=== PATIENT | female | born 1970 | race Two or more races ===

== ENCOUNTER 2022-06-22 17:45 | Emergency (ER) | payer OTHER ==
[~2022-06-22] VITALS: Ht 157.5 cm; Wt 90.7 kg
[2022-06-22 18:18] VITALS: BP 158/97
--- NOTE | 2022-06-22 19:54 | NUR ---
R SHOULDER AND R LOWER BACK PAIN STARTED TODAY, WAS LIFTING HEADY STUFF 2 DAYS AGO. NOT ABLE TO LIFT UP R ARM ABOVE HEAD D/T PAIN PT A/OX4. TOLERATING R/A WELL WITH NO SOB. AMB WITH STEADY GAIT.
[2022-06-22] MEDS ORDERED: IBUP-1955 PO (20:43)
== END 2022-06-22 20:49 | disposition home or self-care (01) ==
LOC: ER 17:55
DX: S29.012A Strain of muscle and tendon of back wall of thorax, initial encounter (principal); S49.91XA Unspecified injury of right shoulder and upper arm, initial encounter; Z79.1 Long term (current) use of non-steroidal anti-inflammatories (NSAID); X50.0XXA Overexertion from strenuous movement or load, initial encounter; Y93.89 Activity, other specified; Y92.89 Other specified places as the place of occurrence of the external cause; Y99.8 Other external cause status
CPT/HCPCS: 73030-TC

== ENCOUNTER 2022-10-26 22:40 | Emergency (ER) | payer OTHER ==
[~2022-10-26] VITALS: Ht 160 cm; Wt 89.8 kg
[~2022-10-26 22:40] MED LIST: IBUP-1955 PO
--- NOTE | 2022-10-26 23:18 | NUR ---
BIBS. CONGESTION, RUNNY NOSE, SORE THROAT AND BODY PAIN X 2 DAYS EXPOSURE TO COVID AT WORK PT A/OX4. TOLERATING R/A WELL WITH NO RESP DISTRESS.
--- NOTE | 2022-10-26 23:30 | NUR ---
COVID AND INFLUENZA SWAB COLLECTED AND SENT TO LAB
--- NOTE | 2022-10-27 01:00 | NUR ---
Patient discharged to home in stable condition. Written and verbal after care instructions given. Patient verbalizes understanding of instruction. PT ambulatory with a steady gait
[2022-10-27 01:03] VITALS: BP 131/80
== END 2022-10-27 01:04 | disposition home or self-care (01) ==
LOC: ER 22:41
DX: U07.1 COVID-19 (principal); J06.9 Acute upper respiratory infection, unspecified; J00 Acute nasopharyngitis [common cold]; Z20.822 Contact with and (suspected) exposure to COVID-19; Z79.899 Other long term (current) drug therapy
CPT/HCPCS: 99283; 87426; 87804 ×2; C9803

== ENCOUNTER 2023-03-07 20:49 | Emergency (ER) | payer OTHER ==
[~2023-03-07] VITALS: Ht 160 cm; Wt 88.9 kg
[2023-03-07 21:26] VITALS: BP 146/77; TEMP 98.6
[2023-03-07] MEDS ORDERED: IBUP-1955 PO (21:30)
[2023-03-07] MEDS ORDERED: AMOX500T2 PO (21:30)
== END 2023-03-07 21:41 | disposition home or self-care (01) ==
LOC: ER 20:54
DX: H66.92 Otitis media, unspecified, left ear (principal); Z79.899 Other long term (current) drug therapy

== ENCOUNTER 2023-07-12 20:40 | Emergency (ER) | payer OTHER ==
[~2023-07-12] VITALS: Ht 160 cm; Wt 88.5 kg
[~2023-07-12 20:40] MED LIST changes: +AMOX500T2 PO
[2023-07-12 20:53] VITALS: BP 132/94; TEMP 98.3; O2SAT 96
[2023-07-12 21:37] LABS: BASOPHILS % (AUTO) 0.4 % (0.0-2.0); EOSINOPHILS # (AUTO) 0.3 K/uL (0.0-0.7); EOSINOPHILS % (AUTO) 3.3 % (0.0-6.0); HEMATOCRIT 40 % (33-45); HEMOGLOBIN 13.1 g/dL (11.5-14.8); LYMPHOCYTES # (AUTO) 3.2 K/uL (0.8-4.8); MEAN CORPUSCULAR HEMOGLOBIN 30 PG (26.0-33.0); MEAN CORPUSCULAR HGB CONC 33 g/dl (31.0-36.0); MEAN CORPUSCULAR VOLUME 91 fL (82-100); MONOCYTES # (AUTO) 0.5 K/uL (0.1-1.30); MONOCYTES % (AUTO) 5.5 % (2.0-12.0); NEUTROPHILS # (AUTO) 5.4 K/uL (1.8-8.9); NEUTROPHILS % (AUTO) 56.8 % (43.0-81.0); PLATELET COUNT (AUTO) 267 K/uL (150-450); RED BLOOD CELL COUNT(AUTO) 4.41 MIL/uL (4.0-5.2); RED CELL DISTRIBUTION WIDTH 13.9 % (11.5-15.0); WHITE BLOOD COUNT (AUTO) 9.4 K/uL (4.3-11.0)
[2023-07-12 21:45] LABS: CALCIUM, SERUM 8.3 mg/dL (8.5-10.1); CARBON DIOXIDE 29 mmol/L (21-32); CHLORIDE 101 mmol/L (98-107); CREATININE 0.7 mg/dL (0.6-1.3); GLUCOSE 117 mg/dL (74-106); POTASSIUM 3.6 mmol/L (3.5-5.1); SODIUM SERUM 138 mmol/L (136-145); UREA NITROGEN, BLOOD 13 mg/dL (7-18)
[2023-07-12] MEDS ORDERED: ASPIRIN 325 MG TABLET ONE (22:17)
[2023-07-12] MEDS ORDERED: ASPIRIN 325 MG TABLET PO ONE (22:30)
[2023-07-12 22:42] LABS: PREGNANCY TEST URINE QUAL NEGATIVE (NEGATIVE)
== END 2023-07-13 02:58 | disposition short-term general hospital (02) ==
LOC: ER 20:54
DX: R07.9 Chest pain, unspecified (principal); R42 Dizziness and giddiness
CPT/HCPCS: 36415; 71045-TC; 80048-TC; 84484-TC; 84703-TC; 85025-TC